=== PATIENT | female | born 2000 | race Caucasian/White ===

== ENCOUNTER 2020-08-17 09:08 | Emergency (ER) | payer OTHER ==
--- NOTE | 2020-08-17 09:57 | CT ---
Head CT Technique: Multiple axial sections through the brain were obtained. Intravenous contrast was not utilized. Reconstructed coronal and sagittal images were obtained. Comparison: No previous intracranial imaging is available. Findings: Ventricles along the basal cisterns and sulci over the convexities are within normal limits for the patient's age. No abnormal parenchymal densities are seen. No evidence of intracranial hemorrhage. No midline shift or mass-effect is seen. Bone window settings were reviewed which show mild mucosal thickening within the inferior left maxillary sinus. Right mastoid sinus is clear. Visualized paranasal sinuses are clear. No acute calvarial finding is appreciated. Impression: 1. Mucosal thickening within the inferior left mastoid sinus. Please rule out any symptoms of infection. 2. No additional abnormality is identified on noncontrast head CT study. Diagnostic code #3
--- NOTE | 2020-08-17 10:06 | EDM.PDOC ---
ED HPI GENERAL MEDICAL PROBLEM - General Chief Complaint: Headache Stated Complaint: HEAD INJURY ON 08/14/20 -HEADACHE/NAUSEA Time Seen by Provider: 08/17/20 09:15 Source of Information: Reports: Patient History Limitations: Reports: No Limitations - History of Present Illness INITIAL COMMENTS - FREE TEXT/NARRATIVE: The patient presents with a headache from a head injury. She was playing volleyball on the and she was knocked over and hit her head on the left side. She had a few second loss of consciousness. She has had a headache every since. She has a headache to the front of his head. She has nausea but no vomiting. She has no numbness or weakness. She does have some mild right lateral neck pain. She has no fever, chills, cough, chest pain or shortness of breath. She has no medical problems. She also admits to having some brain frog. Onset: Sudden Duration: Day(s): Location: Reports: Head, Neck Quality: Reports: Sharp Severity: Moderate Improves with: Reports: None Worsens with: Reports: None Associated Symptoms: Reports: Headaches. Denies: Chest Pain, Cough, Fever/Chills, Nausea/Vomiting, Shortness of Breath head Pain Score (Numeric/FACES): 4 - Related Data Allergies Allergy/AdvReac Type Severity Reaction Status Date / Time No Known Allergies Allergy Verified 08/17/20 09:22 Home Meds: Home Meds . [No Known Home Meds] 08/17/20 [History] Past Medical History - Past Health History Medical/Surgical History: Denies Medical/Surgical History Social & Family History - Tobacco Use Tobacco Use Status *Q: Never Tobacco User - Caffeine Use Caffeine Use: Reports: None - Recreational Drug Use Recreational Drug Use: No ED ROS GENERAL - Review of Systems Review Of Systems: See Below Constitutional: Reports: No Symptoms HEENT: Reports: No Symptoms Respiratory: Reports: No Symptoms Cardiovascular: Reports: No Symptoms Endocrine: Reports: No Symptoms GI/Abdominal: Reports: Nausea. Denies: Abdominal Pain, Vomiting - Physical Exam Exam: See Below Exam Limited By: No Limitations General Appearance: Alert, No Apparent Distress Ears: Normal External Exam Nose: Normal Inspection Head Exam: Atraumatic, Normocephalic Neck: Tender Lateral (mild to the right upper neck) Respiratory/Chest: No Respiratory Distress, Lungs Clear, Normal Breath Sounds Cardiovascular: Regular Rate, Rhythm, No Edema, No Murmur GI/Abdominal: Soft, Non-Tender, No Organomegaly, No Mass Neuro Exam (Abbreviated): Alert, Oriented, No Motor/Sensory Deficits Course - Vital Signs Last Recorded V/S: Last Vital Signs Temp 97.5 F 08/17/20 09:18 Pulse 98 08/17/20 09:18 Resp 18 08/17/20 09:18 BP 124/92 H 08/17/20 09:18 Pulse Ox 98 08/17/20 09:18 - Re-Assessments/Exams Free Text/Narrative Re-Assessment/Exam: 08/17/20 10:[address] of her head and it shows mucosal thickening within the inferior left mastoid sinus. Please rule out any symptoms of infection. No additional abnormality is identified on noncontrast head CT study. She has no sinus infection signs. 08/17/20 10:18 She has a concussion. I will discharge her home. Departure - Departure Time of Disposition: 10:20 Disposition: Home, Self-Care 01 Condition: Good Clinical Impression: Concussion Qualifiers: Encounter type: initial encounter Loss of consciousness presence/duration: with LOC of 30 min or less Qualified Code(s): S06.0X1A - Concussion with loss of consciousness of 30 minutes or less, initial encounter - Discharge Information *PRESCRIPTION DRUG MONITORING PROGRAM REVIEWED*: Not Applicable *COPY OF PRESCRIPTION DRUG MONITORING REPORT IN PATIENT DIAZ: Not Applicable Referrals: PCP,Not In Area [Primary Care Provider] - Irene Richardson MD [Physician] - 1 Week Forms: ED Department Discharge Additional Instructions: Get plenty of rest. Take tylenol or motrin for pain. Try to avoid reinjuring yourself for a couple weeks. Please return if you are worse. Sepsis Event Note (ED) - Evaluation Sepsis Screening Result: No Definite Risk - Focused Exam Vital Signs: Vital Signs Temp Pulse Resp BP Pulse Ox 08/17/20 09:18 97.5 F 98 18 124/92 H 98
== END 2020-08-17 10:24 | disposition home or self-care (01) ==
LOC: JD.ED 09:08
DX: S06.0X1A Concussion with loss of consciousness of 30 minutes or less, initial encounter (principal); W21.06XA Struck by volleyball, initial encounter; Y93.68 Activity, volleyball (beach) (court)
CPT/HCPCS: 70450; 70450-26; 99284; 99284-25